=== PATIENT | male | born 1990 | race Caucasian/White ===

== ENCOUNTER → 2018-11-11 | Outpatient (CLI) | payer OTHER ==
[2018-11-11 15:54] LABS: INR 0.94; PROTIME 12.7 Sec (11.9-14.9)
[2018-11-11 15:55] LABS: PARTIAL THROMBOPLASTIN TIME 27.5 Sec (23.0-35.0)
[2018-11-11 16:45] LABS: FREE T4 (FREE THYROXINE) 1.17 ng/dl (0.79-2.35)
[2018-11-11 17:01] LABS: FOLATE 9.7 ng/ml (2.8-20.0)
[2018-11-11 19:06] LABS: ANION GAP 10 (5-13); BLOOD UREA NITROGEN 13 mg/dl (7-20); CALCIUM 9.6 mg/dl (8.4-10.2); CARBON DIOXIDE 28 mmol/L (21-31); CHLORIDE 102 mmol/L (97-110); CREATININE 1.09 mg/dl (0.61-1.24); Estimated GFR > 60 mL/min (>60); GLUCOSE 115 mg/dl (70-220); POTASSIUM 3.9 mmol/L (3.5-5.1); SODIUM 140 mmol/L (135-144)
[2018-11-12 12:26] LABS: CREATININE, RANDOM URINE 239 mg/dL (20-320); PROTEIN/CREATININE RATIO 46 mg/g creat (22-128)
[2018-11-13 05:01] LABS: PROTEIN, TOTAL 6.9 g/dL (6.1-8.1)
== END | disposition home or self-care (01) ==
LOC: LAB 13:26
DX: H46.9 Unspecified optic neuritis (principal)
CPT/HCPCS: 80048; 82570; 82607; 82746; 83921; 84155; 84156; 84165; 84166; 84439; 84443; 85610; 85730; 86226; 86235

== ENCOUNTER 2018-11-25 09:07 | Day surgery (SDC) | payer OTHER ==
[2018-11-25] MEDS: LIDOCAINE 1% (MPF) 5 ML VIAL (12:10)
[2018-11-25 15:18] LABS: CSF RBC 0 /uL (0-0); CSF WBC 2 /cmm (0-10)
[2018-11-25 15:41] LABS: CSF COLOR COLORLESS
[2018-11-25 15:41] LABS: CSF CLARITY CLEAR
[2018-11-25 15:42] LABS: CSF VOLUME 9.5 ml; CSF#TUBE COUNT TUBE#4; CSF#TUBES REC'D 4
[2018-11-25 17:26] LABS: GLUCOSE,CSF 57 mg/dl (50-80)
[2018-11-25 17:26] LABS: TOTAL PROTEIN,CSF 46 mg/dl (12-60)
[2018-11-28 23:21] LABS: VDRL, CSF NON-REACTIVE
== END 2018-11-25 17:00 | disposition home or self-care (01) ==
LOC: SDS 09:07
DX: H46.9 Unspecified optic neuritis (principal); G35 Multiple sclerosis
CPT/HCPCS: 62270; 82945; 84157; 86592; 89051